=== PATIENT | female | born 1995 | race Caucasian/White ===

== ENCOUNTER 2017-01-05 10:01 | Emergency (ER) | payer OTHER ==
[2017-01-05] MEDS ORDERED: IBUPROFEN 400 MG TABLET PO ONE (10:39)
--- NOTE | 2017-01-05 11:06 | ER PHYSICIAN DOCUMENTATION ---
Physician Documentation [facility] Name:Bertha Merida Age:21 yrs Sex:Female :1995 Arrival Date:01/05/2017 Time:10:01 Bed1 Private MD: Dayton Kothari Disposition: 01/05/17 10:43 Discharged to Home/Self Care. Impression: Wrist Contusion. - Condition is Good. - Discharge Instructions: CONTUSION, Upper Extremity. - Medical Reconciliation form form. - Follow up: Private Physician; When: 7 - 10 days; Reason: Recheck today's complaints, Continuance of care. - Problem is new. - Symptoms have improved. HPI: 01/05 10:10 This 21 yrs old Female presents to ER via Walk In with complaints of Wrist cd Injury - rt. 10:10 The patient or guardian reports a contusion. The complaints affect the right wrist cd diffusely. Context: The problem was sustained at work, resulted from a direct blow, by a solid object. Onset: The symptom(s)/episode began/occurred acutely, just prior to arrival. Associated signs and symptoms: The patient has no apparent associated signs or symptoms. Historical: - Allergies: Amoxicillin; - Home Meds: 1. Albuterol Inhl - PMHx: ASTHMA; - PSHx: Tonsillectomy; - Tetanus: < 10 years. - Ebola Screening: : No symptoms or risks identified at this time. . - Immunization history: Flu Vaccine < 1 year. - Social history: Smoking status: Patient states was never smoker of tobacco. ROS: 10:20 MS/extremity: Positive for contusion, of the right wrist. cd 10:20 Skin: Negative for acute changes. 10:20 All other systems are negative. Exam: 10:20 Hand exam: Exam is positive for swelling, tenderness, ROM: no acute changes, cd Circulation is intact in all extremities. sensation intact. 10:20 Skin: Exam negative for acute changes. 10:20 Constitutional: The patient appears alert, awake, anxious. Vital Signs: 10:21 BP 135 / 84; Pulse 83; Resp 15; Temp 97.6(O); Pulse Ox 92% on R/A; Weight 77.11 kg (R); lpr Height 5 ft. 0 in. (152.40 cm) (R); Pain 5/10; 10:21 Body Mass Index 33.20 (77.11 kg, 152.40 cm) lpr MDM: 10:24 Patient medically screened. cd 10:40 Data reviewed: vital signs, nurses notes, old medical records, radiologic studies, and cd as a result, I will discharge patient. Counseling: I had a detailed discussion with the patient and/or guardian regarding: the historical points, exam findings, and any diagnostic results supporting the discharge/admit diagnosis, radiology results, the need for outpatient follow up, for a recheck, with the patient's primary care provider, to return to the emergency department if symptoms worsen or persist or if there are any questions or concerns that arise at home. Response to treatment: the patient's symptoms have markedly improved after treatment. 01/05 20:35 Order name: WRIST; [place] [id number]; Complete Time: 06:24 EDMS 01/07 06:24 Interpretation: Normal. cd 01/05 10:19 Order name: Ice Packs; Complete Time: 10:19 lpr Dispensed Medications: 10:26 Drug: Ibuprofen 400 mg; Route: PO; lpr 11:06 Follow up: Response: Pain is decreased lpr Signatures: Dayton Staton MD MD cd Roberts, Leslie, RN RN lpr
--- NOTE | 2017-01-05 11:06 | ER NURSING DOCUMENTATION ---
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 Putting trash in lpr dumpster and hit right wrist on bar of dumpster. Good PMS. Transition of care: patient was not received from another setting of care. 10:19 Method Of Arrival: Walk In lpr Triage Assessment: 11:04 General: Appears uncomfortable, Behavior is cooperative. Pain: Complains of pain in lpr right wrist. EENT: Oral mucosa is moist. Neuro: Level of Consciousness is awake, alert, obeys commands, Oriented to person, place, time, event. Cardiovascular: Chest pain is denied. Respiratory: Airway is patent Respiratory effort is even, unlabored, Respiratory pattern is regular, symmetrical. GI: No deficits noted. : No deficits noted. Derm: Skin is intact, is healthy with good turgor, Skin is pink, warm & dry. Musculoskeletal: Circulation, motion, and sensation intact Capillary refill < 3 seconds Range of motion intact in all extremities. Injury Description: Abrasion sustained to right wrist. Historical: - Allergies: Amoxicillin; - Home Meds: 1. Albuterol Inhl - PMHx: ASTHMA; - PSHx: Tonsillectomy; - Tetanus: < 10 years. - Ebola Screening: : No symptoms or risks identified at this time. . - Immunization history: Flu Vaccine < 1 year. - Social history: Smoking status: Patient states was never smoker of tobacco. Screenin:05 Infectious Disease Risk None. Abuse screen: Denies threats or abuse. Nutritional lpr screening: No deficits noted. Assessment: 11:05 See Triage Assessment done by same RN. lpr Vital Signs: 10:21 BP 135 / 84; Pulse 83; Resp 15; Temp 97.6(O); Pulse Ox 92% on R/A; Weight 77.11 kg (R); lpr Height 5 ft. 0 in. (152.40 cm) (R); Pain 5/10; 10:21 Body Mass Index 33.20 (77.11 kg, 152.40 cm) lpr ED Course: 10:03 Patient arrived in ED. ds 10:18 Triage completed. lpr 10:24 Dayton Staton MD is Attending Physician. cd 11:05 Valuables Remains with patient. lpr Administered Medications: 10: Drug: Ibuprofen 400 mg; Route: PO; lpr 11:06 Follow up: Response: Pain is decreased lpr Outcome: 10:43 Discharge ordered by MD. cd 11:00 Discharged to home ambulatory, with friend. 11:00 Condition: improved 11:00 Discharge instructions given to patient, friend, Instructed on discharge instructions, follow up and referral plans. Demonstrated understanding of instructions. 11:06 Patient left the ED. lpr 01/06 14:59 Discharge F/U Call: Unable to reach: no answer Signatures: Carol Conner, Reg Reg ds Dayton Staton MD MD cd Roberts, Leslie, RN RN lpr Shaylee Mccabe
--- NOTE | 2017-01-05 19:31 | RADIOLOGY REPORT ---
Four views of the right wrist demonstrate no displaced fracture or dislocation. Visualized joints appear unremarkable. IMPRESSION: No displaced injury. If clinically indicated, further evaluation and/or follow-up may be of benefit. MTDD
== END 2017-01-05 11:06 | disposition home or self-care (01) ==
LOC: ER 10:01
DX: S60.211A Contusion of right wrist, initial encounter (principal); W22.8XXA Striking against or struck by other objects, initial encounter; Y92.59 Other trade areas as the place of occurrence of the external cause; Y93.E5 Activity, floor mopping and cleaning; Y99.0 Civilian activity done for income or pay
CPT/HCPCS: 99283